=== PATIENT | female | born 1985 ===

== ENCOUNTER 2021-01-12 14:15 | Emergency (ER) | payer OTHER ==
[~2021-01-12] VITALS: Ht 160 cm; Wt 52.0 kg
[2021-01-12 14:17] VITALS: BP 133/78
== END 2021-01-12 14:42 | disposition left against medical advice (07) ==
LOC: EMS 14:15
DX: F41.9 Anxiety disorder, unspecified (principal); Z53.21 Procedure and treatment not carried out due to patient leaving prior to being seen by health care provider